=== PATIENT | male | born 1990 ===

== ENCOUNTER 2025-02-28 17:46 | Emergency (ER) | payer SELFPAY ==
[2025-02-28 18:01] LABS: Bacteria/HPF None Seen HPF (None Seen); CAUTI Indications for Culture Dysuria,urgency,freq; Glucose, Urine (Dipstick) Normal (Negative); Leukocyte Negative Leu/uL (Negative); Protein, Urine (Dipstick) Negative (Neg-Trace); RBC/HPF 0-3 HPF (0-3); Specific Gravity, Urine 1.004 (1.002-1.036); WBC/HPF 0-3 HPF (0-3)
[2025-02-28 18:14] LABS: Urine Culture Reflex No No
== END 2025-02-28 19:15 | disposition home or self-care (01) ==
LOC: ERS 17:46 → EDBD 17:46 → ERS 19:15
DX: N50.812 Left testicular pain (principal); F17.200 Nicotine dependence, unspecified, uncomplicated
CPT/HCPCS: 76870; 81001; 93976